=== PATIENT | female | born 1940 | race Caucasian/White ===

== ENCOUNTER 2024-07-14 10:54 | Emergency (ER) | payer MEDICARE, SELFPAY ==
[2024-07-14 10:57] VITALS: BMI 32.0
[2024-07-14 10:58] VITALS: BP 145/56
[2024-07-14 11:00] VITALS: BP 145/56
[2024-07-14 11:13] LABS: Glucose - Point of Care 96 mg/dl (70-99)
[2024-07-14] MEDS: TYLENOL 1000 MG PO (11:31)
--- NOTE | 2024-07-14 11:55 | ED.MUSCINJ ---
HPI-Injury
General
Chief Complaint: Fall
Source: patient and family
Exam Limitations: none
Time Seen by Provider: 07/14/24 11:17
Nursing documentation reviewed up to this point in time: agreed with
History of Present Illness-Injury
Is this injury a work related problem?: No
Is pt an associate of [facility]?: No
Initial Injury comments:
83-year-old female slipped getting some laundry from her wheelchair, struck her face on the ground, has some pain in her upper back neck has a hematoma on her forehead from a fall over Thanksgiving, takes Plavix but no other blood thinners no arm or
leg weakness does have osteoarthritis she lives independently she is accompanied by her daughter now
Past History
Past History
ED Past Medical History: CAD, Cancer (Breast, Basal cell), CVA, HTN, Hypercholesterolemia and NIDDM
ED Past Surgical History: Cardiac (Cath/stents 03/2016)
Social History
Tobacco: Non-smoker
Alcohol: None
Drug: None
Personal:
Living: with family
Employment: Retired
Family History
Family History: Other (no colon ca)
Review of Systems
Review of Systems
All Other Systems: Not applicable
Constitutional: Denies fever or chills
EENT: Reports no symptoms
Respiratory: Reports no symptoms
Cardiac: Reports no symptoms
ABD/GI: Reports no symptoms
: Reports no symptoms
Neurological: Denies headache
Hematologic/Lymphatic: Reports no symptoms
Phy Exam
Physical Exam
Physical Exam:
Physical Exam
General: 83 female nontoxic ice on her face
Neck: Mild paraspinal neck pain, old appearing hematoma in the left forehead
Heart: s1/s2 regular rate and rhythm, no murmur. equal radial pulses.
Lungs: no acute respiratory distress. clear bilaterally
Abdomen: Nontender
Neuro: alert and oriented. Moves all
Skin: no rash
Psychiatric: well kept. interactive and cooperative
Extremities: No pain with range of motion of the hips mild pain in the left shoulder
Injury Course
Orders/Labs/Results
Orders:
Orders
07/14/24 10:58
EKG [Electrocardiogram (*1)] Urgent
Reason for Study: Fatigue / Weakness
EKG- Treatment ONCE
07/14/24 11:14
CT Cervical Spine W/o Iv Contr Urgent
Reason For Exam: FALL/PAIN
CT Head W/o Iv Contrast Urgent
Comment:
Reason For Exam: FALL/PAIN
CR Shoulder, Trauma - Left Urgent
Comment:
Reason For Exam: FALL/PAIN
07/14/24 11:30
Acetaminophen [Tylenol] 1,000 mg .ROUTE .STK-MED ONE
07/14/24 11:31
Acetaminophen [Tylenol] 1,000 mg PO NOW STA
07/14/24 11:56
Physical Therapy Consult [Pt Eval And Treat] Urgent
Activity Level: Ambulate
07/14/24 12:42
Complete Blood Count/With Diff Urgent
Comprehensive Metabolic Panel Urgent
07/14/24 12:43
Case Management Consult ONCE
Case Management Consult: Discharge Planning
MDM/Problems Addressed
Differential Diagnosis Includes:
Slip and fall deconditioning, less likely arrhythmia
MDM/Problems Addressed:
Fall head and neck trauma
Chronic conditions affecting care: DM and HTN
Acute Exacerbation and/or Progression of Chronic Illness: DM and HTN
*Critical Care Note
Total Time (30-74mins, 75-104mins- exclusive of procedures): Not Applicable
Update Note
Update Note:
1245, reviewed with PT, recommends skilled will consult case management,
115 reviewed with case management, patient not amenable to rehab due to cost we will get visiting nurses
ED Attending Note
-
Portions of this chart may have been created with voice recognition software.� Occasional wrong word or��sound alike� substitutions may have occurred due to the inherent limitations of voice recognition software.
Discharge Plan
Departure
Patient Disposition: Home (Routine Discharge)
Date of Disposition: 07/14/24
Time of Disposition: 13:13
Patient with high blood pressure during this ER visit?: No
Condition: Good
Discharge Problem:
Fall
Instructions: Concussion, Adult (DC), Contusion (DC), Preventing falls in adults
Prescriptions:
No Action
metformin 500 MG tablet
500 mg PO DAILY@0800
metoprolol tartrate [Lopressor] 100 MG tablet
100 mg PO BID
aspirin 81 MG tablet,delayed release (DR/EC)
81 mg PO DAILY
simvastatin 40 MG tablet
40 mg PO HS
ascorbic acid (vitamin C) [Vitamin C] 500 MG tablet
500 mg PO DAILY
gabapentin 300 MG capsule
300 mg PO 5/D
benazepril 20 MG tablet
20 mg PO DAILY
cholecalciferol (vitamin D3) [Vitamin D3] 400 UNITS tablet
400 units PO DAILY
isosorbide mononitrate 60 mg Tablet Extended Release 24 Hr
60 mg PO DAILY
furosemide [Lasix] 20 mg Tablet
20 mg PO DAILY
clopidogrel 75 MG tablet
75 mg PO DAILY
acetaminophen 325 mg Tablet
650 mg PO Q4HPRN PRN (Reason: mild pain/ fever>100.5F) Qty: 1 0RF
Referrals:
Lois Nance MD [Family Provider] - Next open appointment
Activity Restrictions/Additional Instructions:
Treat plenty fluids, Tylenol as needed for pain
Interventions
Interventions:
*Risk Screen - Suicide Last Done: 07/14/24 11:02
*General Assessment Last Done: 07/14/24 11:02
*Neglect/Abuse Screening Last Done: 07/14/24 11:02
ED- Fall Risk Assessment Last Done: 07/14/24 12:39
*ED COVID-19 Vaccine History Last Done: 07/14/24 11:02
ED-Musculoskeletal Assessment Last Done: 07/14/24 11:04
ED- Neurological Assessment Last Done: 07/14/24 11:04
ED-Skin Assessment Last Done: 07/14/24 11:04
Discharge Date and Time
Print Language: UPPER SORBIAN
[2024-07-14 12:20] VITALS: BP 127/43
[2024-07-14 13:00] VITALS: BP 113/40
[2024-07-14 13:10] VITALS: BP 113/40; PULSE 76
[2024-07-14] MEDS: ULTRAM 25 MG PO (13:25)
--- NOTE | 2024-07-14 13:32 | CM ---
Case management consult placed. Patient had fallen at home and was having difficulty with walking. CM went over PT's recommendations. Patient stated she would not be able to afford STR OOP costs. She chose [facility]. She lives with her landlord and
the landlord's daughter is also staying at the home for awhile. Spoke with patient's daughter, Amanda, who was in agreement with plan and will be checking up on her mother.
DISCHARGE PLAN: Home with PT/OT/SN with [facility].
[2024-07-14 14:01] VITALS: BP 100/51
== END 2024-07-14 14:54 | disposition home or self-care (01) ==
LOC: EMR 10:54
PROVIDERS: EMERGENCY PHYSICIAN Emergency Medicine; FAMILY PHYSICIAN Internal Medicine
DX: S00.83XA Contusion of other part of head, initial encounter (principal); W01.0XXA Fall on same level from slipping, tripping and stumbling without subsequent striking against object, initial encounter; I25.10 Atherosclerotic heart disease of native coronary artery without angina pectoris; E78.00 Pure hypercholesterolemia, unspecified; E11.9 Type 2 diabetes mellitus without complications; I10 Essential (primary) hypertension; Z86.73 Personal history of transient ischemic attack (TIA), and cerebral infarction without residual deficits; Z95.5 Presence of coronary angioplasty implant and graft; Z85.3 Personal history of malignant neoplasm of breast
CPT/HCPCS: 99285; 70450; 72125; 73030; 82962; 93005